=== PATIENT | female | born 1980 | race Caucasian/White ===

== ENCOUNTER 2024-08-05 19:23 | Emergency (ER) | payer OTHER ==
[2024-08-05 19:38] VITALS: BP 119/78; PULSE 68; RESP 18; TEMP 97.5; BMI 31.1
== END 2024-08-05 20:21 | disposition home or self-care (01) ==
LOC: JERFT 19:23
DX: H91.93 Unspecified hearing loss, bilateral (principal)
CPT/HCPCS: 99283-25